=== PATIENT | female | born 1980 | race Caucasian/White ===

== ENCOUNTER 2020-04-22 15:39 | Inpatient (IN) | payer MEDICAID, OTHER ==
[~2020-04-22] VITALS: Ht 154.9 cm; Wt 77.1 kg
[2020-04-22] MEDS ORDERED: ONDANSETRON HCL 4MG/2ML INJ IV STA ×2 (16:40→18:55)
[2020-04-22] MEDS ORDERED: SODIUM CHLORIDE 0.9% 1,000 ML IV ONE (16:40)
[2020-04-22] MEDS ORDERED: KETOROLAC 30MG/ML VIAL IV STA (16:40)
[2020-04-22 17:31] LABS: BASOPHILS % 0.2 % (0.0-2.0); EOSINOPHILS % 0.3 % (0.0-5.0); HEMOGLOBIN. 12.6 g/dL (12.0-16.0); LYMPHOCYTES % 18.9 % (20.0-50.0); MEAN CORPUSCULAR HEMOGLOBIN 27.2 pg (28.0-32.0); MEAN CORPUSCULAR VOLUME 80.3 fL (81.0-99.0); MEAN PLATELET VOLUME 8.5 fl (7.4-10.4); MONOCYTES % 5.4 % (2.0-8.0); NEUTROPHILS % 75.2 % (40.0-76.0); PLATELET 320 x1000/uL (130-400); RED BLOOD CELL COUNT 4.61 mill/uL (4.2-5.4); RED CELL DISTRIBUTION WIDTH 14.1 % (11.6-14.6)
[2020-04-22 17:32] LABS: CHLORIDE 106 mEq/L (98-107)
[2020-04-22 17:37] LABS: HCG SCREEN NEGATIVE
[2020-04-22 18:48] LABS: CLARITY URINE CLEAR (CLEAR); COLOR URINE YELLOW (YELLOW); KETONES URINE 1+ (NEGATIVE); LEUKOCYTE ESTERASE URINE NEGATIVE (NEGATIVE); NITRITE URINE NEGATIVE (NEGATIVE); OCCULT BLOOD URINE 3+ (NEGATIVE); PROTEIN URINE NEGATIVE (NEGATIVE); SPECIFIC GRAVITY URINE 1.034 (1.005-1.030); UROBILINOGEN URINE 0.2 E.U./dL (0.2-1.0)
[2020-04-22] MEDS ORDERED: MORPHINE SULFATE 4 MG/ML CPJ (NOT FOR IM USE) IV STA (18:55)
[2020-04-22] MEDS ORDERED: DEXT 5%/0.45% NACL 1000ML 1,000 ML IV SCH (22:11)
[2020-04-22] MEDS ORDERED: KETOROLAC 15MG/ML VIAL IV PRN (22:15)
[2020-04-22] MEDS ORDERED: DOCUSATE SODIUM 100MG CAPSULE PO PRN (22:15)
[2020-04-22] MEDS ORDERED: IPRATROPIUM/ALBUTEROL 0.5-3(2.5)MG/3ML NEB NEB PRN (22:15)
[2020-04-22] MEDS ORDERED: ACETAMINOPHEN 325MG TABLET PO PRN ×2 (22:15)
[2020-04-22] MEDS ORDERED: TRAMADOL 50MG TABLET PO PRN (22:15)
[2020-04-22] MEDS ORDERED: GUAIFENESIN 200MG/10ML SUGAR FREE UDC PO PRN (22:15)
[2020-04-22] MEDS ORDERED: MAGNESIUM/ALUMINUM HYDROXIDE/SIMETHICONE 30ML UDC PO PRN (22:15)
[2020-04-22] MEDS ORDERED: LORAZEPAM 2MG/ML CPJ IV PRN (22:15)
[2020-04-22] MEDS ORDERED: CLONIDINE 0.1MG TABLET PO PRN (22:15)
[2020-04-22] MEDS ORDERED: ONDANSETRON HCL 4MG/2ML INJ IV PRN (22:15)
[2020-04-22] MEDS ORDERED: KCL 20MEQ/100ML PREMIX 100 ML IV SCH (22:30)
[2020-04-22] MEDS ORDERED: IOHEXOL-300 100 ML BOTTLE ONE (23:26)
[2020-04-23] MEDS: PIPERACILLIN/TAZ 3.375G PREMIX 50 ML IV SCH ×2 (03:49→07:00)
[2020-04-23] MEDS ORDERED: BUPIVACAINE HCL 0.5% (5MG/ML) 50ML ONE (08:07)
[2020-04-23] MEDS ORDERED: SKIN ADHESIVE 0.7 GM EA TOP ONE ×2 (08:07→08:43)
[2020-04-23] MEDS ORDERED: MORPHINE SULFATE 4 MG/ML CPJ (NOT FOR IM USE) IV PRN (09:00)
[2020-04-23] MEDS ORDERED: PANTOPRAZOLE SODIUM 40 MG/VIAL IV SCH (09:00)
[2020-04-23] MEDS ORDERED: MORPHINE SULFATE 2 MG/ML CPJ (NOT FOR IM USE) IV PRN (09:00)
[2020-04-23] MEDS ORDERED: ENOXAPARIN 40MG/0.4ML SYR SUBCUT SCH (09:00)
[2020-04-23] MEDS ORDERED: HYDROCODONE/ACETAMINOPHEN 5/325MG TABLET PO PRN (09:00)
[2020-04-23] MEDS ORDERED: ONDANSETRON HCL 4MG/2ML INJ IV PRN (09:00)
[2020-04-23 09:11] VITALS: BP 102/47
[2020-04-23] MEDS ORDERED: MIDAZOLAM HCL 2 MG/2 ML VIAL ONE (09:17)
[2020-04-23] MEDS ORDERED: FENTANYL CITRATE/PF 50MCG/ML 2ML VIAL ONE (09:17)
[2020-04-23] MEDS ORDERED: ROCURONIUM BROMIDE 10MG/ML VIAL 5ML IV ONE (09:19)
[2020-04-23] MEDS ORDERED: LIDOCAINE HCL/PF 1% 10 MG/ML 5ML VIAL ONE (09:20)
[2020-04-23] MEDS ORDERED: PROPOFOL 200MG/20ML VIAL IV ONE (09:20)
[2020-04-23] MEDS ORDERED: SUCCINYLCHOLINE CHLORIDE 200MG/10ML IV ONE (09:21)
[2020-04-23] MEDS ORDERED: SODIUM CHLORIDE 0.9% 10ML VIAL ONE (09:30)
[2020-04-23] MEDS ORDERED: CEFAZOLIN SODIUM 1000MG/VIAL ONE (09:30)
[2020-04-23] MEDS ORDERED: ONDANSETRON HCL 4MG/2ML INJ ONE (09:37)
[2020-04-23] MEDS ORDERED: DEXAMETHASONE 4MG/ML 1ML VIAL ONE (09:37)
[2020-04-23] MEDS ORDERED: NEOSTIGMINE METHYLSULFATE 1MG/ML 10 ML VIAL ONE (10:00)
[2020-04-23] MEDS ORDERED: DEXT 5%/0.45% NACL KCL 20MEQ/L 1,000 ML IV SCH (10:00)
[2020-04-23] MEDS ORDERED: GLYCOPYRROLATE 0.2 MG/ML 2ML VIAL ONE (10:00)
[2020-04-23] MEDS ORDERED: KETOROLAC 30MG/ML VIAL ONE (10:03)
[2020-04-23] MEDS ORDERED: HYDROMORPHONE HCL/PF 2MG/ML CPJ IV PRN (10:30)
[2020-04-23] MEDS ORDERED: SODIUM CHLORIDE 0.9% INJ 3ML FLUSH IVF SCH (14:00)
[2020-04-23] MEDS: HYDROCODONE/ACETAMINOPHEN 5/325MG TABLET PO PRN ×2 (14:49→20:57)
[2020-04-23 16:00] VITALS: BP 123/71
[2020-04-23 16:14] LABS: HEMATOCRIT. 34.7 % (36.0-48.0); HEMOGLOBIN. 11.6 g/dL (12.0-16.0); MEAN CORPUSCULAR VOLUME 80.9 fL (81.0-99.0); MEAN PLATELET VOLUME 8.8 fl (7.4-10.4); PLATELET 281 x1000/uL (130-400); RED BLOOD CELL COUNT 4.29 mill/uL (4.2-5.4); RED CELL DISTRIBUTION WIDTH 14.3 % (11.6-14.6)
[2020-04-23 16:27] LABS: CHLORIDE 109 mEq/L (98-107)
[2020-04-23 17:04] LABS: PLATELET ESTIMATE NORMAL
[2020-04-23] MEDS ORDERED: PIPERACILLIN/TAZOBACTAM 3.375 G in DEXT 5% WATER 100 ML IV SCH (18:00)
[2020-04-23 19:51] VITALS: BP 123/71
[2020-04-23 20:57] VITALS: BP 110/64
== END 2020-04-23 21:12 | disposition home or self-care (01) | DRG 263 ==
LOC: ER 15:39 → MICUSO 23:13 → 6EST 04-23 05:10
PROVIDERS: ADMIT Internal Medicine; ATTEND Internal Medicine
PROC: 0FT44ZZ Resection of Gallbladder, Percutaneous Endoscopic Approach (ICD-10-PCS; principal; 2020-04-23)
DX: K80.00 Calculus of gallbladder with acute cholecystitis without obstruction (principal); E87.6 Hypokalemia; E66.9 Obesity, unspecified; Z68.32 Body mass index [BMI] 32.0-32.9, adult
CPT/HCPCS: 36415; 71045; 73706; 74177; 76705; 80053; 81003; 83036; 84703; 85025; 88304; 93005; 93970; 99285; J0330; J0690; J1100; J1170; J1885; J2060; J2250; J2405; J2543; J2704; J2710; J3010; J3480; J3490; J7030; J7060; Q9967